=== PATIENT | male | born 1975 | race African-American/Black ===

== ENCOUNTER 2017-08-17 14:54 | Emergency (ER) | payer SELFPAY ==
[~2017-08-17] VITALS: Ht 180.3 cm; Wt 81.8 kg
[2017-08-17 15:29] VITALS: BP 143/81
[2017-08-17] MEDS ORDERED: KETOROLAC TROMETHAMINE 60 MG/2 ML VIAL IM ONE (16:00)
== END 2017-08-17 16:18 | disposition home or self-care (01) ==
LOC: EMS 14:57
DX: S39.012A Strain of muscle, fascia and tendon of lower back, initial encounter (principal); Z98.1 Arthrodesis status; X58.XXXA Exposure to other specified factors, initial encounter; Y93.89 Activity, other specified; Y92.89 Other specified places as the place of occurrence of the external cause; Y99.8 Other external cause status
CPT/HCPCS: 96372; 99283; J1885

== ENCOUNTER 2017-08-21 18:16 | Emergency (ER) | payer SELFPAY ==
[~2017-08-21] VITALS: Ht 188 cm; Wt 100.0 kg
[2017-08-21] MEDS ORDERED: MET500 PO (18:48)
[2017-08-21] MEDS ORDERED: IBUP-2070 PO (18:48)
[2017-08-21 20:45] VITALS: BP 168/96
== END 2017-08-21 20:58 | disposition home or self-care (01) ==
LOC: EMS 18:26
DX: S33.5XXA Sprain of ligaments of lumbar spine, initial encounter (principal); X58.XXXA Exposure to other specified factors, initial encounter; Y93.89 Activity, other specified; Y92.89 Other specified places as the place of occurrence of the external cause; Y99.8 Other external cause status
CPT/HCPCS: 72100; 99284

== ENCOUNTER 2020-12-13 13:35 | Emergency (ER) | payer OTHER ==
[~2020-12-13] VITALS: Ht 177.8 cm; Wt 95.5 kg
[~2020-12-13 13:35] MED LIST: IBUP-2070 PO; METH-659 PO
[2020-12-13 13:39] VITALS: BP 152/100
[2020-12-13] MEDS ORDERED: [UNRECOGNIZED DRUG - REMARK] PO (13:47)
[2020-12-13] MEDS ORDERED: [UNRECOGNIZED DRUG - REMARK] PO (13:48)
[2020-12-13 14:57] LABS: BASOPHILS % (AUTO) 1.1 % (0.0-2.0); EOSINOPHILS % (AUTO) 3.1 % (1.0-6.0); HEMATOCRIT 39.4 % (41-53); HEMOGLOBIN 13.2 g/dL (13.5-17.5); LYMPHOCYTES % (AUTO) 38.7 % (22.0-44.0); MEAN CORPUSCULAR HEMOGLOBIN 26.6 pg (26.0-34.0); MEAN CORPUSCULAR HGB CONC 33.4 G/dL (31.0-37.0); MEAN CORPUSCULAR VOLUME 80 fL (80-100); MONOCYTES # (AUTO) 0.5 K/uL (0.1-1.0); MONOCYTES % (AUTO) 9.8 % (2.0-9.0); NEUTROPHILS # (AUTO) 2.5 K/uL (1.8-7.7); NEUTROPHILS % (AUTO) 47.3 % (40.0-70.0); PLATELET COUNT (AUTO) 221 K/uL (150-450); RED BLOOD CELL COUNT(AUTO) 4.95 MIL/uL (4.50-5.90); RED CELL DISTRIBUTION WIDTH 14.6 % (11.5-14.5)
[2020-12-13 15:19] LABS: APPEARANCE,URINE CLEAR (CLEAR); BILIRUBIN,URINE NEGATIVE (NEGATIVE); GLUCOSE, URINE (UA) NEGATIVE (NEGATIVE); KETONES,URINE TRACE mg/dL (NEGATIVE); LEUKOCYTE ESTERASE ,URINE NEGATIVE (NEGATIVE); NITRATE,URINE NEGATIVE (NEGATIVE); OCCULT BLOOD,URINE NEGATIVE (NEGATIVE); PH,URINE 7.5 (5.0-8.0); PROTEIN,URINE TRACE (NEGATIVE); UROBILINOGEN,URINE 0.2 mg/dL (<=1.0)
[2020-12-13 15:29] LABS: ANION GAP 10 mmol/L (8-16); CALCIUM, TOTAL 8.7 mg/dL (8.8-10.5); CARBON DIOXIDE 27 mmol/L (22-29); CHLORIDE 104 mmol/L (98-107); GLOMERULAR FILTR. RATE CALC > 60 mL/min (>60); GLUCOSE,RANDOM 129 mg/dL (70-110); POTASSIUM 4.2 mmol/L (3.5-5.1); SODIUM SERUM 141 mmol/L (136-145); UREA NITROGEN, BLOOD 13 mg/dL (7-18)
[2020-12-13 15:32] LABS: ALANINE AMINOTRANSFERASE 33 U/L (12-78); ALKALINE PHOSPHATASE 77 U/L (46-116); ASPARTATE AMINOTRANSFERASE 26 U/L (15-37); BILIRUBIN,TOTAL 0.3 mg/dL (0.1-1.0); TOTAL PROTEIN, SERUM 7.7 g/dL (6.4-8.2)
== END 2020-12-13 17:20 | disposition home or self-care (01) ==
LOC: EMS 13:35
DX: R10.31 Right lower quadrant pain (principal)
CPT/HCPCS: 74176; 99284

== ENCOUNTER 2024-07-30 23:21 | Emergency (ER) | payer MEDICAID, OTHER ==
[~2024-07-30] VITALS: Ht 177.8 cm; Wt 90.9 kg
[~2024-07-30 23:21] MED LIST changes: +IBUP-1492 PO; -IBUP-2070 PO; +[UNRECOGNIZED DRUG - REMARK] PO; +[UNRECOGNIZED DRUG - REMARK] PO
[2024-07-30 23:31] VITALS: TEMP 98
[2024-07-30] MEDS ORDERED: LOSA-382 PO (23:37)
[2024-07-31] MEDS: KETOROLAC TROMETHAMINE 60 MG/2 ML VIAL IM ONE (01:58)
[2024-07-31] MEDS ORDERED: IBUP-1492 PO (03:13)
[2024-07-31] MEDS ORDERED: METH-659 PO (03:13)
[2024-07-31 04:25] VITALS: BP 130/70; PULSE 90; RESP 16; O2SAT 98
== END 2024-07-31 04:26 | disposition home or self-care (01) ==
LOC: EMS 23:22
DX: S46.912A Strain of unspecified muscle, fascia and tendon at shoulder and upper arm level, left arm, initial encounter (principal); M54.50 Low back pain, unspecified; Z98.890 Other specified postprocedural states; I10 Essential (primary) hypertension; V89.2XXA Person injured in unspecified motor-vehicle accident, traffic, initial encounter; Y93.89 Activity, other specified; Y92.410 Unspecified street and highway as the place of occurrence of the external cause; Y99.8 Other external cause status
CPT/HCPCS: 99283; 73030; 96372; J1885